=== PATIENT | female | born 1945 | race Caucasian/White ===

== ENCOUNTER → 2016-05-13 | Outpatient (CLI) | payer OTHER ==
[~2016-05-13] VITALS: Ht 174 cm; Wt 79.4 kg
[~2016-05-13] MED LIST: Ambien PO; BACTRIM DS PO; CELEBREX200 MG PO; CILOSTAZOL100 MG PO; DIABETA2.5 MG PO; Dilaudid PO; GABAPENTIN300 MG PO; GEMFIBROZIL600 MG PO; INSULIN SLIDING SCAL; JENTADUETO 2.51 EAC2 PO; LEVOQUIN PO; LISINOPRIL20 MG PO; LOMOTIL TABLET1 EACH PO; METFORMIN HCL1000 MG PO; NEXIUM40 MG PO; NOVOLOG MI100 UNIT/4 SC; NOVOLOG MI100 UNIT/M PO; PLETAL100 MG PO; PRENISONE PO; PRILOSEC20 MG PO; SERTRALINE HCL25 MG PO; SERTRALINE HCL50 MG PO; TRADJENTA5 MG PO; ZOFRAN4 MG PO
[2016-05-13 08:24] LABS: CHLORIDE 106 mEq/L (99-109); POTASSIUM 4.3 mEq/L (3.7-5.4); SODIUM 140 mEq/L (136-147)
[2016-05-13 08:26] LABS: GLUCOSE 290 mg/dL (70-99)
[2016-05-13 08:27] LABS: ANION GAP 11 MEQ/L (2-14)
[2016-05-13 08:30] LABS: GFR ESTIMATE (CALCULATED) 52 mL/min/
[2016-05-13 08:31] LABS: UREA NITROGEN (BUN) 24 mg/dL (9-23)
[2016-05-13 08:39] LABS: POINT-OF-CARE METER ID UU13113694
[2016-05-13 10:05] LABS: POINT-OF-CARE METER ID UU13113694
[2016-05-13 10:51] LABS: POINT-OF-CARE METER ID UU13113819
== END | disposition home or self-care (01) ==
LOC: AMB 07:41
PROVIDERS: Internal Medicine Gastroenterology
DX: K86.2 Cyst of pancreas (principal); I10 Essential (primary) hypertension; M10.9 Gout, unspecified; K21.9 Gastro-esophageal reflux disease without esophagitis; M19.90 Unspecified osteoarthritis, unspecified site; E11.9 Type 2 diabetes mellitus without complications
CPT/HCPCS: 80048; 82948; 88173; J0330; J0744; J1815; J2250; J2405; J3010; J7120

== ENCOUNTER → 2016-11-11 | Outpatient (CLI) | payer OTHER ==
[~2016-11-11] VITALS: Ht 174 cm; Wt 79.0 kg
[~2016-11-11] MED LIST changes: +AMBIEN5 MG PO; +GRALISE300 MG PO; +MONTELUKAST SOD10 MG PO; +NOVOLOG MI100 UNIT/4 SQ; +ZOLOFT25 MG PO
[2016-11-11 08:33] LABS: POINT-OF-CARE METER ID UU14174212
[2016-11-11 10:52] LABS: POINT-OF-CARE METER ID UU13113819
== END | disposition home or self-care (01) ==
LOC: AMB 11-04 13:00 → OPR 11-04 15:30 → AMB 07:42
PROVIDERS: Internal Medicine Gastroenterology
PROC: 0F9G4ZX Drainage of Pancreas, Percutaneous Endoscopic Approach, Diagnostic (ICD-10-PCS; principal; 2016-11-11)
DX: K86.2 Cyst of pancreas (principal); E11.9 Type 2 diabetes mellitus without complications; I10 Essential (primary) hypertension; E78.00 Pure hypercholesterolemia, unspecified; K42.9 Umbilical hernia without obstruction or gangrene; G62.9 Polyneuropathy, unspecified; M19.90 Unspecified osteoarthritis, unspecified site; Z79.4 Long term (current) use of insulin; Z80.0 Family history of malignant neoplasm of digestive organs; Z80.3 Family history of malignant neoplasm of breast; Z80.49 Family history of malignant neoplasm of other genital organs; Z82.49 Family history of ischemic heart disease and other diseases of the circulatory system; Z83.3 Family history of diabetes mellitus; Z82.3 Family history of stroke
CPT/HCPCS: 82948; 88173; 93005; J0744; J2250; J3010

== ENCOUNTER 2017-05-12 01:52 | Inpatient (IN) | payer OTHER ==
[~2017-05-12] VITALS: Ht 172.7 cm; Wt 88.0 kg
[~2017-05-12 01:52] MED LIST changes: -GRALISE300 MG PO; +NOVOLOG MI100 UNIT/2 SC; -ZOLOFT25 MG PO; +ZOLOFT50 MG PO
[2017-05-12 02:40] LABS: BASOPHIL (%) 0.4 % (0-1); BASOPHIL COUNT 0.1 K/uL (0-0.1); EOSINOPHIL (%) 0.1 % (0-5); HEMATOCRIT 35.2 % (36.0-46.0); HEMOGLOBIN 12.5 G/DL (11.9-15.5); IMMATURE GRANULOCYTE (%) 0.7 % (0.0-0.7); LYMPHOCYTE (%) 7.5 % (15-42); LYMPHOCYTE COUNT 0.9 K/uL (1.0-2.8); MCH 30.6 PG (29.0-34.0); MCHC 35.5 G/DL (30.0-36.0); MCV 86.3 FL (83-99); MONOCYTE (%) 4.4 % (3-12); MONOCYTE COUNT 0.5 K/uL (0-0.8); NEUTROPHIL (%) 86.9 % (45-76); NEUTROPHIL COUNT 10.6 K/uL (1.8-6.4); PLATELET COUNT 251 K/uL (156-360); RBC DIS.WIDTH-CV 13.2 % (11.8-14.6); RBC DIS.WIDTH-SD 41.6 % (39-53); RED BLOOD COUNT 4.08 M/uL (3.80-5.20); WHITE BLOOD COUNT 12.2 K/uL (4.1-10.2)
[2017-05-12 02:48] LABS: CHLORIDE 104 mEq/L (99-109); POTASSIUM 4.4 mEq/L (3.7-5.4); SODIUM 137 mEq/L (136-147)
[2017-05-12 02:50] LABS: GLUCOSE 379 mg/dL (70-99)
[2017-05-12 02:54] LABS: CREATININE 4.3 mg/dL (0.6-1.3); GFR ESTIMATE (CALCULATED) 11 mL/min/
[2017-05-12 02:55] LABS: UREA NITROGEN (BUN) 62 mg/dL (9-23)
[2017-05-12 03:00] LABS: TROP-I INTERPRETATION NEGATIVE; TROPONIN-I < 0.01 ng/mL (0.0-0.30)
[2017-05-12 03:45] LABS: BASE EXCESS -5.1 mEq/L (-3 to +3); BICARBONATE 21.2 mEq/L (22-26); CARBOXY HGB 1.6 % (0-5); METHEMOGLOBIN 0.6 % (0-1.5); PCO2 43 mm Hg (35-45); PO2 60 mm Hg (80-100)
[2017-05-12 03:46] LABS: COMMENTS - BLOOD GASES C+A+; DEVICE NC; O2 FLOW 2 L/MIN; SITE RR
[2017-05-12 06:00] LABS: APPEARANCE TURBID ((CLEAR)); BILIRUBIN NEGATIVE; BLOOD NEGATIVE; COLOR YELLOW ((YELLOW)); GLUCOSE (STRIP) >=500; KETONES NEGATIVE; LEUKOCYTES MODERATE; NITRITE NEGATIVE; PROTEIN (STRIP) 30; SPECIFIC GRAVITY 1.015 (1.000-1.030); UROBILINOGEN 0.2 MG/DL (0.2-1.0)
[2017-05-12 06:22] LABS: BASOPHIL (%) 0.4 % (0-1); EOSINOPHIL (%) 0 % (0-5); HEMATOCRIT 35.9 % (36.0-46.0); HEMOGLOBIN 12.3 G/DL (11.9-15.5); IMMATURE GRANULOCYTE (%) 0.8 % (0.0-0.7); LYMPHOCYTE (%) 12.2 % (15-42); LYMPHOCYTE COUNT 1.4 K/uL (1.0-2.8); MCH 29.9 PG (29.0-34.0); MCHC 34.3 G/DL (30.0-36.0); MCV 87.1 FL (83-99); MONOCYTE (%) 6.1 % (3-12); MONOCYTE COUNT 0.7 K/uL (0-0.8); NEUTROPHIL (%) 80.5 % (45-76); NEUTROPHIL COUNT 9.1 K/uL (1.8-6.4); PLATELET COUNT 260 K/uL (156-360); RBC DIS.WIDTH-CV 13.3 % (11.8-14.6); RBC DIS.WIDTH-SD 42.5 % (39-53); RED BLOOD COUNT 4.12 M/uL (3.80-5.20); WHITE BLOOD COUNT 11.3 K/uL (4.1-10.2)
[2017-05-12 06:36] LABS: CHLORIDE 106 mEq/L (99-109); GLUCOSE 476 mg/dL (70-99); POTASSIUM 4.4 mEq/L (3.7-5.4); SODIUM 139 mEq/L (136-147)
[2017-05-12 06:41] LABS: CREATININE 3.7 mg/dL (0.6-1.3); GFR ESTIMATE (CALCULATED) 13 mL/min/
[2017-05-12 06:41] LABS: EPITHELIAL CELLS 1+ /HPF; MUCUS NONE SEEN /LPF; RED BLOOD CELLS 0-5 /HPF (0-5); WHITE BLOOD CELLS 15-20 /HPF (0-5)
[2017-05-12 06:42] LABS: BACTERIA RARE /HPF; CALCIUM OXALATE CRYSTALS 3+ /HPF; UCUL ADDED? YES
[2017-05-12 06:42] LABS: GLUCOSE 471 mg/dL (70-99); UREA NITROGEN (BUN) 58 mg/dL (9-23)
[2017-05-12] MEDS ORDERED: GABAPENTIN300 MG PO (09:55)
[2017-05-12 11:17] LABS: HEMOGLOBIN A1c (GLYCOHEMOGLOB) 8.2 % (Below 5.7)
[2017-05-12 12:22] LABS: LIPASE 42 U/L (1.0-51.0)
[2017-05-12 16:15] VITALS: BP 130/63
[2017-05-12 23:45] VITALS: BP 121/66
[2017-05-13 05:56] LABS: FASTING STATUS NONFASTING
[2017-05-13 05:57] LABS: BASOPHIL (%) 0.5 % (0-1); EOSINOPHIL (%) 2.2 % (0-5); EOSINOPHIL COUNT 0.2 K/uL (0-0.3); HEMATOCRIT 32.6 % (36.0-46.0); IMMATURE GRANULOCYTE (%) 0.4 % (0.0-0.7); LYMPHOCYTE COUNT 2.1 K/uL (1.0-2.8); MCH 29.2 PG (29.0-34.0); MCHC 33.7 G/DL (30.0-36.0); MCV 86.5 FL (83-99); MONOCYTE (%) 8.4 % (3-12); MONOCYTE COUNT 0.6 K/uL (0-0.8); NEUTROPHIL (%) 59.5 % (45-76); NEUTROPHIL COUNT 4.3 K/uL (1.8-6.4); PLATELET COUNT 187 K/uL (156-360); RBC DIS.WIDTH-CV 13.2 % (11.8-14.6); RBC DIS.WIDTH-SD 41.2 % (39-53); RED BLOOD COUNT 3.77 M/uL (3.80-5.20); WHITE BLOOD COUNT 7.3 K/uL (4.1-10.2)
[2017-05-13 06:23] LABS: ALBUMIN 3.3 G/DL (3.2-4.8); ALKALINE PHOSPHATASE 70 IU/L (3-129); ALT (GPT) 15 IU/L (3-49); AST (GOT) 14 IU/L (2-34); CHLORIDE 108 MEQ/L (99-109); HDL CHOLESTEROL 26 MG/DL (Desirable>=50); LDL CHOLESTEROL 79 mg/dL (Desirable<100); NON-HDL CHOLESTEROL 121 mg/dL (Desirable<160); POTASSIUM 4.2 MEQ/L (3.7-5.4); SODIUM 140 MEQ/L (136-147); TOTAL BILIRUBIN 0.4 MG/DL (0.0-1.0); TOTAL CHOLESTEROL 147 mg/dL (Desirable<200); TOTAL PROTEIN 5.5 G/DL (6.4-8.3); TRIGLYCERIDES 211 MG/DL (Normal: <150); UREA NITROGEN (BUN) 29 mg/dL (9-23)
[2017-05-13 06:24] LABS: CREATININE 1.4 MG/DL (0.6-1.3); GFR ESTIMATE (CALCULATED) 40 mL/min/; GLUCOSE 101 mg/dL (70-99)
[2017-05-13 07:53] VITALS: BP 123/60
[2017-05-13 15:22] LABS: CHLORIDE 108 MEQ/L (99-109); POTASSIUM 4.4 MEQ/L (3.7-5.4); SODIUM 135 MEQ/L (136-147)
[2017-05-13 15:28] LABS: CREATININE 1.2 MG/DL (0.6-1.3); GFR ESTIMATE (CALCULATED) 47 mL/min/; UREA NITROGEN (BUN) 25 mg/dL (9-23)
[2017-05-13 15:29] LABS: GLUCOSE 163 mg/dL (70-99)
[2017-05-13 16:11] VITALS: BP 98/53
[2017-05-13] MEDS ORDERED: TIZANIDINE HCL4 MG PO (16:52)
[2017-05-13] MEDS ORDERED: GEMFIBROZIL600 MG PO (16:53)
[2017-05-13] MEDS ORDERED: GLUCOPHAGE1000 MG PO (16:54)
[2017-05-13] MEDS ORDERED: TRADJENTA5 MG PO (16:55)
[2017-05-13] MEDS ORDERED: ULTRAM50 MG PO (16:57)
[2017-05-13 17:59] VITALS: BP 98/53
[2017-05-13 20:46] LABS: UR CREATININE CONCENTRATION 79.7 MG/DL
== END 2017-05-13 18:46 | disposition home or self-care (01) | DRG 682 ==
LOC: EME 01:52 → EDOF 04:27 → 5EAST 04:27 → ENRESERV 04:49 → CANRESERV 12:21 → ENRESERV 13:27 → 5EAST 16:10
PROVIDERS: Emergency Medicine; Family Medicine
DX: N17.9 Acute kidney failure, unspecified (principal); E11.00 Type 2 diabetes mellitus with hyperosmolarity without nonketotic hyperglycemic-hyperosmolar coma (NKHHC); E87.2 Acidosis; E87.0 Hyperosmolality and hypernatremia; J98.11 Atelectasis; F33.9 Major depressive disorder, recurrent, unspecified; E11.65 Type 2 diabetes mellitus with hyperglycemia; E78.1 Pure hyperglyceridemia; E78.5 Hyperlipidemia, unspecified; I10 Essential (primary) hypertension; E11.42 Type 2 diabetes mellitus with diabetic polyneuropathy; E11.51 Type 2 diabetes mellitus with diabetic peripheral angiopathy without gangrene; M54.5 Low back pain; R09.02 Hypoxemia; I95.9 Hypotension, unspecified; Z66 Do not resuscitate; I70.219 Atherosclerosis of native arteries of extremities with intermittent claudication, unspecified extremity; M25.78 Osteophyte, vertebrae; M85.88 Other specified disorders of bone density and structure, other site; Z79.4 Long term (current) use of insulin; Z91.14 Patient's other noncompliance with medication regimen; Z91.19 Patient's noncompliance with other medical treatment and regimen; Z90.721 Acquired absence of ovaries, unilateral; Z87.11 Personal history of peptic ulcer disease; Z82.49 Family history of ischemic heart disease and other diseases of the circulatory system; Z80.3 Family history of malignant neoplasm of breast
CPT/HCPCS: 36600; 70450; 71046; 71250; 72125; 72128; 72131; 76770; 80048; 80048 91; 80053; 80061; 81003; 82043; 82570; 82803; 82948; 83036; 83605; 83690; 84156; 84484; 84999; 85025; 85025 91; 87086; 93005; 99281; 99285; J1815; J2270; J7030